=== PATIENT | female | born 1985 | race Asian ===

== ENCOUNTER 2017-01-05 12:59 | Inpatient (IN) | payer SELFPAY ==
[~2017-01-05] VITALS: Ht 165.1 cm; Wt 76.2 kg
[2017-01-22] MEDS ORDERED: IRON65TA11 PO (01:48)
[2017-01-22] MEDS ORDERED: PREN1SGL25 PO (01:48)
[2017-01-22] MEDS ORDERED: LACTATED RINGERS 1,000 ML IV SCH (01:49)
[2017-01-22] MEDS ORDERED: NALBUPHINE HYDROCHLORIDE 10 MG/ML VIAL IVP SCH (01:50)
[2017-01-22] MEDS ORDERED: METHYLERGONOVINE 0.2 MG/ML AMP IM PRN ×2 (01:50→15:15)
[2017-01-22] MEDS ORDERED: OXYTOCIN 10 UNITS/ML VIAL IM SCH (01:50)
[2017-01-22] MEDS ORDERED: CARBOPROST 250 MCG/ML AMP IM PRN (01:50)
[2017-01-22 01:59] VITALS: BP 106/65
[2017-01-22] MEDS ORDERED: OXYTOCIN 20 UNITS/LR PREMIX 1,000 ML IV ONE (02:09)
[2017-01-22] MEDS ORDERED: OXYTOCIN 20 UNITS/LR PREMIX 1,000 ML IV PRN (02:30)
[2017-01-22 02:36] LABS: BASOPHILS # (AUTO) 0.1 K/uL (0.00-0.22); BASOPHILS % (AUTO) 0.8 % (0.0-2.0); EOSINOPHILS # (AUTO) 0.1 K/uL (0-0.4); HEMATOCRIT 37.6 % (36-48); HEMOGLOBIN 12.3 g/dL (12.0-16.0); LYMPHOCYTES # (AUTO) 1.7 K/uL (2.5-16.5); MEAN CORPUSCULAR HEMOGLOBIN 29 pg (27-31); MEAN CORPUSCULAR HGB CONC 33 g/dL (33-37); MEAN CORPUSCULAR VOLUME 89 fL (80-94); MONOCYTES # (AUTO) 0.5 K/uL (0.8-1.0); MONOCYTES % (AUTO) 7.2 % (1.7-9.3); PLATELET COUNT (AUTO) 209 K/uL (140-450); RED BLOOD CELL COUNT(AUTO) 4.25 MIL/uL (4.20-5.40); RED CELL DISTRIBUTION WIDTH 14.3 % (11.6-13.7); WHITE BLOOD COUNT (AUTO) 7.4 K/uL (4.8-10.8)
[2017-01-22 02:48] LABS: APPEARANCE,URINE CLEAR (CLEAR); BILIRUBIN,URINE NEGATIVE (NEGATIVE); BLOOD, URINE NEGATIVE (NEGATIVE); COLOR,URINE YELLOW (YELLOW); LEUKOCYTE ESTERASE ,URINE TRACE (NEGATIVE); NITRITE, URINE NEGATIVE (NEGATIVE); PROTEIN,URINE NEGATIVE (NEGATIVE); UGLUCOSE 1+ (NEGATIVE); UROBILINOGEN,URINE 0.2 EU/dL (0.2 - 1)
[2017-01-22 02:55] LABS: ALBUMIN 2.7 g/dL (3.4-5.0); ANION GAP 10.4 (8-16); CALCIUM 8.8 mg/dL (8.5-10.1); CARBON DIOXIDE 25.6 mmol/L (21-32); CREATININE 0.6 mg/dL (0.6-1.3); TOTAL BILIRUBIN 0.4 mg/dL (0.0-1.0); TOTAL PROTEIN, SERUM 5.9 g/dL (6.4-8.2)
[2017-01-22 03:07] LABS: HIV RAPID SCREEN NON-REACTIVE (NON REACTIV)
[2017-01-22] MEDS ORDERED: ROPIVACAINE 0.2%/NS PREMIX 250 ML EPI ONE (03:09)
[2017-01-22 03:11] LABS: RBC,URINE 0-5 (RARE) /HPF (0-5)
[2017-01-22 03:13] LABS: BACTERIA,URINE 2+ /HPF (None Seen)
[2017-01-22] MEDS ORDERED: OXYTOCIN 10 UNITS/ML VIAL ONE (12:15)
[2017-01-22] MEDS ORDERED: METHYLERGONOVINE 0.2 MG/ML AMP ONE (13:20)
[2017-01-22] MEDS ORDERED: CARBOPROST 250 MCG/ML AMP IM ONE (13:20)
[2017-01-22] MEDS ORDERED: BENZOCAINE/MENTHOL 20%-0.5% 60 GM CAN TP PRN (15:15)
[2017-01-22] MEDS ORDERED: WITCH HAZEL 40 PAD PACKAGE TP PRN (15:15)
[2017-01-22] MEDS ORDERED: MEASLES, MUMPS, AND RUBELLA 1 VIAL SQVAC PRN (15:15)
[2017-01-22] MEDS ORDERED: HYDROcodone/APAP 5/325 MG 1 TAB TAB PO PRN (15:15)
[2017-01-22] MEDS ORDERED: TEMAZEPAM 15 MG CAP PO PRN (15:15)
[2017-01-22] MEDS ORDERED: oxyCODONE/APAP 5/325 MG 1 TAB TAB ONE (17:16)
[2017-01-22] MEDS: oxyCODONE/APAP 5/325 MG 1 TAB TAB PO PRN (17:21)
[2017-01-22] MEDS ORDERED: DOCUSATE SOD/SENNA 50/8.6 MG 1 TAB PO SCH (21:00)
[2017-01-23 06:22] LABS: HEMATOCRIT 23.3 % (36-48)
[2017-01-23] MEDS ORDERED: INFLUENZA VIRUS VACCINE QUAD 0.5 ML SYR IMVAC SCH (07:00)
[2017-01-23] MEDS: IBUPROFEN 800 MG TAB PO PRN ×2 (08:46→17:50)
--- NOTE | 2017-01-23 09:13 | NUR ---
PATIENT HAS BEEN SCREENED AND CATEGORIZED LOW NUTRITION RISK. PATIENT WILL BE SEEN WITHIN 7 DAYS OF ADMISSION. 01/28/[address]
[2017-01-23 11:31] LABS: RAPID PLASMA REAGIN NON-REACTIVE (Non Reactiv)
[2017-01-23] MEDS: oxyCODONE/APAP 5/325 MG 1 TAB TAB PO PRN (13:04)
[2017-01-23] MEDS ORDERED: FERR325E14 PO (14:04)
[2017-01-23] MEDS ORDERED: FERROUS SULFATE 325 MG TABEC PO SCH (15:12)
[2017-01-23] MEDS: FERROUS SULFATE 325 MG TABEC PO SCH (17:50)
[2017-01-24] MEDS: IBUPROFEN 800 MG TAB PO PRN ×2 (08:02→18:05)
[2017-01-24] MEDS: FERROUS SULFATE 325 MG TABEC PO SCH ×3 (08:05→18:05)
== END 2017-01-24 22:15 | disposition home or self-care (01) | DRG 775 ==
LOC: MFCC 01-22 00:30
PROVIDERS: ADMIT Obstetrics & Gynecology; ATTEND Obstetrics & Gynecology
PROC: 10D07Z6 Extraction of Products of Conception, Vacuum, Via Natural or Artificial Opening (ICD-10-PCS; principal; 2017-01-22)
PROC: 0KQM0ZZ Repair Perineum Muscle, Open Approach (ICD-10-PCS; 2017-01-22)
PROC: 10907ZC Drainage of Amniotic Fluid, Therapeutic from Products of Conception, Via Natural or Artificial Opening (ICD-10-PCS; 2017-01-22)
PROC: 0W8NXZZ Division of Female Perineum, External Approach (ICD-10-PCS; 2017-01-22)
PROC: 00HU33Z Insertion of Infusion Device into Spinal Canal, Percutaneous Approach (ICD-10-PCS; 2017-01-22)
PROC: 3E0R3CZ (ICD-10-PCS; 2017-01-22)
PROC: 3E0234Z Introduction of Serum, Toxoid and Vaccine into Muscle, Percutaneous Approach (ICD-10-PCS; 2017-01-23)
DX: O70.1 Second degree perineal laceration during delivery (principal); Z37.0 Single live birth; Z3A.39 39 weeks gestation of pregnancy; Z23 Encounter for immunization
CPT/HCPCS: 36415; 80053; 81001; 85018; 85025; 86592; 86886; 86900; 86901; 87086; 90658; 90715; J2210; J2590; J2795; J3490